=== PATIENT | female | born 1945 | race Caucasian/White ===

== ENCOUNTER → 2023-11-01 13:11 | Outpatient (CLI) | payer MEDICARE, SELFPAY ==
--- NOTE | ~2023-11-01 | XR_ITS ---
EXAM: XR foot LT min 3V DATE: 11/01/2023 13:31 HISTORY: left foot pain . COMPARISON: None available. FINDINGS: Decreased mineralization. No fracture or dislocation. Loss of the longitudinal arch. No ly tic or blastic lesion. Joint spaces are maintained. No erosion or periosteal change. Soft tissues wit hin normal limits. IMPRESSION: Osteopenia. Pes planus. Otherwise normal left foot radiograph findings. Reviewed, dictated and finalized at location K. SCRIBING OPERATOR HEAD IMPRESSION: Osteopenia. Pes planus. Otherwise normal left foot radiograph findi ngs.
== END ==
DX: M21.42 Flat foot [pes planus] (acquired), left foot (principal); M85.88 Other specified disorders of bone density and structure, other site
CPT/HCPCS: 73630

== ENCOUNTER 2024-09-29 18:57 | Emergency (ER) | payer MEDICARE, SELFPAY ==
[2024-09-29] VITALS (8 sets, daily range): BP systolic 150–173; BP diastolic 59–83; PULSE 75–98; RESP 13–22; TEMP 36.9; O2SAT 96–100
--- NOTE | ~2024-09-29 | CT_ITS ---
EXAMINATION: CT abdomen pelvis w con DATE: 09/30/2024 00:56 INDICATION: Abdominal pain, nausea, vomiting and diarrhea. TECHNIQUE: Computed tomography (CT) of the abdomen and pelvis was performed with 100 mL Omnipaque-350 intravenous contrast. Automated exposure control and iterative reconstruction technique were employe d. The dose-length product was 296.08 mGy-cm. COMPARISON: 05/01/2019 FINDINGS: Mild smooth septal line thickening at the bilateral lung bases consistent with mild pulmonary edema. Heart size is normal. No pericardial or pleural effusion. 1.3 cm likely enhancing nodule with lobular margins along the nondependent gallbladder wall which could represent either a large polyp or gallbl adder cancer. Liver, spleen, pancreas, bilateral adrenal glands and kidneys are normal. Bladder is no rmal. The uterus is not identified and has likely been surgically resected. Bowels including the appe ndix are normal. No free intraperitoneal gas or fluid. No pathologically enlarged abdominal or pelvic lymphadenopathy. Mild lumbar levocurvature with mild to moderate lumbar and lower thoracic spondylos is. Right supra-acetabular bone island. IMPRESSION: 1. No acute intra-abdominal/pelvic process. 2. 1.3 cm nodule along the nondependent gallbladder wall which could represent a large polyp of with increasing size there is a progressively increasing risk of gallbladder carcinoma and would recommend surgical consultation and/or 6 month ultrasound follow-up. Reviewed, dictated and finalized at location A. S OFFICER IMPRESSION: 1. No acute intra-abdominal/pelvic process. 2. 1.3 cm nodule along the nondependent gallbladder wall which could represent a large polyp of with increasing size there is a progressively increasing risk of gallbladder carcinoma and would recommend surgical consultation and/or 6 mon th ultrasound follow-up.
[2024-09-29 22:21] LABS: Basophils Percent Auto 0.4 % (0.2-1.2); Eosinophils Percent Auto 0.2 % (0-4.4); Hematocrit 39.6 % (37.0-47.0); Hemoglobin 12.8 g/dL (12.0-15.0); Immature Granulocyte Absolute 0.01 K/mm3 (0.00-0.031); Immature Granulocyte Percent A 0.2 % (0-0.5); Lymphocytes Percent Auto 4.1 % (18.3-44.2); Mean Corpuscular HGB Conc 32.3 g/dl (32-36); Mean Corpuscular Hemoglobin 28.9 pg (26-34); Mean Corpuscular Volume 89.4 fl (80-100); Mean Platelet Volume 10.4 fl (7.4-10.4); Monocytes Absolute Auto 0.3 K/mm3 (0.1-0.6); Monocytes Percent Auto 5.4 % (2.6-8.5); Neutrophils Absolute Auto 4.3 K/mm3 (1.3-6.7); Neutrophils Percent Auto 89.7 % (45.5-73.1); Platelet Count Result 209 k/mm3 (150-375); Red Blood Count 4.43 M/mm3 (4.2-5.4); Red Cell Distribution Width 13.1 % (11.5-14.5); White Blood Count 4.8 K/mm3 (4.5-10.0)
[2024-09-29 22:35] LABS: Alanine Aminotransferase 22 U/L (6-35); Albumin Level 4.3 g/dL (3.5-5.1); Alkaline Phosphatase 67 U/L (38-126); Anion Gap 12 mmol/L (4-12); Aspartate Amino Transferase 35 U/L (14-36); Bilirubin,Total 0.6 mg/dL (0.2-1.3); Blood Urea Nitrogen 27 mg/dL (7-17); Calcium 10.1 mg/dL (8.4-10.2); Carbon Dioxide 21 mmol/L (22-30); Chloride 107 mmol/L (98-107); Estimated CRCL calculation 42 ml/min; Estimated Glomerular Filt Rate > 60; Glucose 109 mg/dL (65-110); Lipase 88 U/L (23-300); Potassium 4.1 mmol/L (3.4-5.0); Sodium 140 mmol/L (137-145)
--- OUTSIDE RECORDS SUMMARY | 2024-09-29 23:33 | XMS_ITS | Encounter Summary ---
Author Organization [facility] Healthcare Address [address] [place] [address] Care Team Providers Care Philosophy Specialist Name Role Phone Sarai Magaña MD Unavailable [phone] Panfilo Kerns MD Primary Care Provider [phone] Reason for Visit * Reason Onset Date Comments Diarrhea 09/29/2024 Nausea And Vomitting 09/29/2024 Encounter Details Date Type Department Care Team (Late st Contact Info) Description 09/29/2024 Nurse Triage [facility] [address] [phone] Panfilo Kerns MD [address] [facility] [address], [place] [address] Social History Tobacco Use Types Packs/Day Years Used Date Smoking Tobacco: Never Smokeless Tobacco: Never Comments:Does not drink alco hol Alcohol Use Standard Drinks/Week Comments No 0 (1 standard drink = 0.6 oz pur e alcohol) AUDIT-C Answer Date Recorded Q1: How often do you have a drink containing alc ohol? Never 06/02/2021 Average Number of Drinks Not on file 021 Frequency of Binge Drinking Not on file 05/08 PHQ-2 Answer Date Recorded PHQ-2 Total Score (If total score is 3 or more points, staff should administer the PHQ-9) 0 10/20/2023 Comments No Sex and Gender Information Value Date Recorded Sex Assigned at Not on file Legal Sex Female 2:17 AM FAN MAIL CLERK Gender Identity Not on file Sexual Orientation Not on file Occupation Industry Job Start Date Job End Date Worked in [employer], retired Not on file Not on file Not on file documented as of this encounter Miscellaneous Notes * Telephone Encounter - Lynda Heart RN - 09/29/2024 2:45 PM FAN MAIL CLERK Paradise [employer]keon's Cirilo (HIPAA) who is with the patient, reports patient's had NVD since 0300 today. CC: watery diarrhea. Estimates ~ 6+ episodes of diarrhea and 3-4 episodes of vomiting.Took Imodium this AM & vomited it up. Just drank some water a few minutes ago, 2 swallows. Has voided in last 12 hours. Patient eating/drinking normally yesterday. No recent travel, known exposures, antibiotics or spoiled food. Temp now (oral) 96.5 F Denies rectal bleeding/hematemesis/fever/dizziness/abdominal pain. Care advice and emotional support given. Patient instructed to call back if symptoms worsen or withany questions and verbalized understanding. Provider Dano Cook NP contacted via secure chat for ED disposition consult. Recommendation from provider:Send to [facility]. Advised for patient to go to a local [facility] (not a [facility]) and they do not have internet at home. Gave them names and adress of 3 different UCC's in their area. Then this RN was informed that patient took a medication for constipation yesterday. Advised them to still proceed to a local [facility]. [facility], [facility], [place] Informed Cirilo that this RN nor [facility] recommends one UCC over another, but this RN just trying to help provide them some options. verbalized understanding. Reason for Disposition SEVERE diarrhea (e.g., 7 or more times / day more than normal) and age > 60 years Protocols used: [id number] MAIL CLERK * Telephone Encounter - Lynda Heart RN - 09/29/2024 2:41 PM FAN MAIL CLERK Regarding: Diarrhea, vomiting, nausea ----- Message from Sanchez Campa sent at 09/29/2024 2:37 PM FAN MAIL CLERK ----- Symptom Based Call Chief Complaint(s): Diarrhea, vomiting, nausea Duration: 09/29/24 What type of symptom(s) is the patient experiencing? Non-Emergent. Is this a new or reoccurring symptom(s)? New What have you tried to help your symptom(s)? She tried imodium this morning, but vomited the medication back up Why was appointment not scheduled? Requesting advice from clinical environmental field team member. Additional Comments: spouse Cirilo called to report patient is has diarrhea, vomiting, and nausea since 3:00 AM this morning. Patient denied bloody, black, and tarry bowel movements and denied blood,black, or coffee vomiting. Patient seeking guidance on next steps. Does message need to be routed? Yes-Action Needed MAIL CLERK documented in this encounter Plan of Treatment Upcoming Encounters Date Type Department Care Team (Late st Contact Info) Description 10/24/2024 8:30 AM FAN MAIL CLERK Hospital Encounter [facility] [address] [place] [phone] Don Maciel MD [address] [facility] [address], [place] [id number] 10/24/2024 8:30 AM FAN MAIL CLERK - 10/24/2024 9:00 AM FAN MAIL CLERK Surgery [facility] [address] [place] [phone] Don Maciel MD [address] [facility] [address], [place] [id number] COLONOSCOPY Scheduled Procedures Name Priority Associated Diagnoses Date/Ti me COLONOSCOPY Personal history of colonic polyps 10/24/2024 8:30 AM FAN MAIL CLERK documented as of this encounter Visit Diagnoses Not on filedocumented in this encounter Care Teams Philosophy Specialist Relationship Specialty Start Date End Date Panfilo Kerns MD [address] [facility] [address], [place] [id number] PCP - General Family Medicine 06/20/20 Sarai Magaña MD [address] [place] [id number] [place] [address] Consulting Physician Obstetrics and Gynecology 01/25/20 documented as of this encounter
--- OUTSIDE RECORDS SUMMARY | 2024-09-29 23:33 | XMS_ITS | Clinical Summary ---
Author Organization [facility] Address [address] [place] [address] Care Team Providers Care Paleontological Helper Name Role Phone Sarai Magaña MD Unavailable [phone] Panfilo Kerns MD Primary Care Provider [phone] Allergies Active Allergy Reactions Criticality Noted Date Comments Codeine Nausea & Vomiting Medium Erythromycin Other (See comments) Low Severe stomach cramps Fentanyl Shortness of breath High 02/23/2020 Penicillins Hives,Anxiety Medium Occurred with second dose ( 1 week after initial dose) No other related antibiotics Prochlorperazine Swollen tongue High Sulfa (Sulfonamide Antibiotics) Rash Medium 07/12/2019 Medications cholecalciferol (VITAMIN D-3) 2,000 unit tablet Take 1 tablet (2,000 Units total) by mouth daily 30 tablet 3 9 Active Additional Information Patient taking differently:2,000 Units oralDaily after lunch, Indications: Vitamin D Deficiency, Reported on 10/20/2023 cetirizine (ZyrTEC) 10 mg tablet Take 1 tablet (10 mg total) by mouth as needed for allergies Active naproxen (ALEVE) 220 mg tablet Take 1 tablet (220 mg total) by mouth every 12 (twelve) hours as needed for pain Pt taking prn Active docusate sodium (COLACE) 100 mg capsuleIndicati ons:constipatio n Take 1 capsule (100 mg total) by mouth 2 (two) times a day as needed for constipation Active triamcinolone (KENALOG) 0.1 % cream Apply topically 2 (two) times a day for 14 days 30 g 4 Active simvastatin (ZOCOR) 10 mg tablet TAKE 1 TABLET BY MOUTH EVERY DAY AFTER DINNER 90 tablet 1 4 Active Active Problems Problem Noted Date Diagnosed Date Personal history of colonic polyps 05/12/2024 Capsulitis of foot, left 11/09/2023 Fat pad atrophy of foot 11/09/2023 Advanced care planning/counseling discussion Assessment & Plan (10/20/2023 3:24 PM COSTUME DRAPER): Advance Care Planning Advance Care Planning Conversation Pertinent diagnoses: Hypercholesterolemia, atrial bowel syndrome, allergies, tubular adenoma The patient and/or family consented to a voluntary Advance Care Planning conversation. Individuals present for the conversation: patient Summary of the conversation: Patient does not have advanced care planning documents. She reports that she was adopted and does not have any siblings. She also does not have any children. She got in 1968 and would like her Cirilo Mckeon to be her healthcare power of defense attorney. She states that she would want CPR/Intubation if there is good chance of recovery otherwise she does not want it. She also reports that even if she is on a ventilator, she does not want to prolong life if there is no hope. I printed [place], living [place], power of defense attorney for healthcare and POLST form and given to patient. Advised to get it motorized and send us a copy. Outcome of the conversation and documents completed (select all that apply): CHANGE code status to FULL CODE I spent 20 minutes providing separately identifiable ACP services with the patient and/or surrogate decision maker in a voluntary, in-person conversation discussing the patient's wishes and goals as detailed in the above note. Panfilo Kerns MD Hypercalcemia 10/19/2022 Assessment & Plan (10/20/2023 3:19 PM COSTUME DRAPER): Previously on vitamin-D and calcium, she has no longer taking both the medication due to hypercalcemia. Repeat calcium performed on 02/2023 was normal. Will recheck labs. Assessment & Plan (10/19/2022 2:54 PM COSTUME DRAPER): Currently on vitamin-D 3 2000 units daily. She does not take calcium supplement. Recheck vitamin-D and PTH Left foot pain 10/16/2021 Assessment & Plan (10/20/2023 3:21 PM COSTUME DRAPER): Since she feels that the soreness is getting worse, will refer her to community representative Assessment & Plan (10/16/2021 3:13 PM COSTUME DRAPER): Likely due to mild arthritis. Recommend that she take Tylenol and monitor History of postmenopausal bleeding 06/23/2019 Assessment & Plan (10/19/2022 2:53 PM COSTUME DRAPER): History of hysterectomy and oophorectomy. Continue follow-up with the travertine installer Assessment & Plan (10/15/2020 10:03 PM COSTUME DRAPER): Status post hysterectomy and oophorectomy. Urinary frequency 01/02/2019 Assessment & Plan (01/02/2019 2:30 PM CDT): Keep equal exercises, see Dr. Lew if this is not help Medicare annual wellness visit, subsequent 12/01 Overview (10/19/2022): 12/2017: DEXA scan showed bone mineral density lower limit of normal 12/2015. Last colonoscopy with Dr Maciel was on 12/2015 that showed fragments of tubular adenoma, recall in 5 yrs. 05/2021: Colonoscopy: fragments of tubular adenoma, recall 3 yr(Dr Maciel). 02/2020: Persistent PMB/uterine mass s/p laparoscopic abdominal hysterectomy with bilateral salpingo-oophorectomy and path report was benign 02/2021: L1-L4 -1.3. left femoral neck-1.0. total left hip -0.7.?? She is adopted and does not know her siblings. She does not have children and states her is HPOA. Assessment & Plan (10/20/2023 3:20 PM COSTUME DRAPER): Mammogram on 06/17/2023 was negative: Recommend annual mammogram. DEXA scan on 02/2021 shows osteopenia, recheck in 2025. Colon cancer screening: Up-to-date, repeat colonoscopy later this year. Referred to GI Advance Care Planning: Discussed with patient, see below Continue regular dental and eye exam She walks 3 times daily, recommend at least 30 minutes of daily exercise Assessment & Plan (10/19/2022 2:53 PM COSTUME DRAPER): Counseling and Referral of Preventative Services: Patient here for annual Medicare wellness visit and for review of complete medical problem list. All the elements of the plan were completed as outlined by CMS. A copy of the prevention plan was given to the patient. I reviewed Medicare Wellness Questionnaire (other physicians involved in care, depression screen, advanced directives), cognitive/memory, and functional assessment. Forms scanned in progress notes. I reviewed and updated the complete problem list, medication list, family history, and immunization records with the patient. I provided preventive counseling and early detection interventions to the patient through health maintenance update and summary of today's office visit. Recommend Tdap every 10 yrs, annual flu vaccine, shingles vaccine x 2, and COVID 19 booster vaccination. Mammogram: Recommend annual mammogram. DEXA scan: Recommend DEXA scan every 2-5 yrs. Colon cancer screening: Up-to-date, repeat colonoscopy in 2023. Advance Care Planning: Discussed with patient Recommend regular dental visit 1-2 times a year. Continue annual eye exam Assessment & Plan (10/16/2021 3:11 PM COSTUME DRAPER): Counseling and Referral of Preventative Services: Patient here for annual Medicare wellness visit and for review of complete medical problem list. All the elements of the plan were completed as outlined by CMS. A copy of the prevention plan was given to the patient. I reviewed Medicare Wellness Questionnaire (other physicians involved in care, depression screen, advanced directives), cognitive/memory, and functional assessment. Forms scanned in progress notes. I reviewed and updated the complete problem list, medication list, family history, and immunization records with the patient. I provided preventive counseling and early detection interventions to the patient through health maintenance update and summary of today's office visit. Mammogram: Continue annual mammogram Dexa scan: Osteopenia, continue Vitamin D supplement. Recheck in 3-4 yrs. Recommend Tdap every 10 yrs, annual flu vaccine and shingles vaccine after you turn 50. We recommend pneumococcal vaccination for all adults 19 to 64 years who have a condition that increases the risk of pneumococcal disease. It is also recommended for all adults >=65 years. Also recommend COVID 19 vaccination, if you have not been vaccinated. Colon cancer screening: uptodate, repeat in 3-5 yrs Recommend regular dental visit 1-2 times a year. Also recommend eye exam if vision is poor. Nutrition: Recommend eating a balanced diet, including fruits and vegetables daily and regular servings of fish. We recommend you do not drink alcohol, if you must drink, we recommend you limit alcohol to one drink per day for female and no more than 2 drink a day for males, where a drink is defined as 12 oz of beer, 5 oz of wine, or 1.5 oz of spirits. Activity: Normal BMI is >=18.5 to 24.9 kg/m2. .Try to keep BMI at the recommended limit. Recommend regular exercise, 30 minutes daily for at least 5 days a week or 150 minutes of weekly exercise. Advised to do things that stimulate your mind, such as puzzles, books, working on hobbies, visiting with friends and relatives or engaging in other social and community activities. Sleep: Sleep can have a big effect on your memory and thinking. Please make sure you get a good night's sleep every night. If you have trouble sleeping, make sure you follow these rules for basic sleep hygiene: -Get up at the same time every morning, regardless of how little or how poorly you sleep. -No napping during the day time. If naps are really necessary, nap for less than an hour and avoid napping late in the evening. -Have a regular calm down time before going to bed. Do not work right up until bedtime. -Have a regular exercise schedule, as exercise helps consolidate sleep. -No caffeine for 6 hours before bedtime. -No watching T.V. or using the computer in your bedroom or at bedtime. -If you are not able to fall asleep after 20 minutes, get out of bed and do a relaxing activity for a few minutes. -Avoid taking medications like Tylenol PM, or Advil PM, these drugs can make memory and thinking worse. Assessment & Plan (10/15/2020 10:00 PM COSTUME DRAPER): Counseling and Referral of Preventative Services: Lifestyle Recommendations Increase Physical Activity, Stop Using Tobacco, Reduce Weight and Improve DietYour Body mass index is 23.65 kg/m??. A healthy BMI is less than 25. Patient here for annual Medicare wellness visit and for review of complete medical problem list. All the elements of the plan were completed as outlined by CMS. A copy of the prevention plan was given to the patient. I reviewed Medicare Wellness Questionnaire (other physicians involved in care, depression screen, advanced directives), cognitive/memory, and functional assessment. Forms scanned in progress notes. I reviewed and updated the complete problem list, medication list, family history, and immunization records with the patient. I provided preventive counseling and early detection interventions to the patient through health maintenance update and summary of today's office visit. Due for colonoscopy in 12/2020. Recommend DEXA scan in 3-5 years Recommend annual mammogram Assessment & Plan (01/02/2019 2:29 PM CDT): Life style, exerise and diet were reviewed with the patient, along with ideal body weight. Use of caffeine and alcohol were discussed. Medications, compliance and pertinent adverse drug effects were reviewed. Health maintenance matters were discussed and are now up to date. Assessment & Plan (12/01/2017 1:32 PM CDT): Life style, exerise and diet were reviewed with the patient, along with ideal body weight. Use of caffeine and alcohol were discussed. Medications, compliance and pertinent adverse drug effects were reviewed. Health maintenance matters were discussed and are now up to date. Osteopenia of multiple sites 12/01/2017 Assessment & Plan (01/02/2019 2:29 PM CDT): Continue vitamin-D Assessment & Plan (12/01/2017 1:51 PM CDT): Will set up bone density last done 3 half years ago. Check vitamin-D level Seasonal allergic rhinitis due to pollen 018 Overview (10/15/2020): She reports being on allergy injection when she was a teenager. Assessment & Plan (10/15/2020 10:04 PM COSTUME DRAPER): Continue cetirizine as needed.She reports being on allergy injection when she was a teenager. Assessment & Plan (01/02/2019 2:29 PM CDT): No change in p.r.n. Management Assessment & Plan (12/01/2017 1:54 PM CDT): P.r.n. Lyndsay working well Cholelithiasis 07/12/2012 Overview (12/11/2016): Asymptomatic gallstones Assessment & Plan (01/02/2019 2:28 PM CDT): Observe only, asymptomatic for many years Hypercholesterolemia 07/12/2012 Overview (12/11/2016): Hypercholesterolemia Assessment & Plan (10/20/2023 3:17 PM COSTUME DRAPER): Currently on simvastatin 10 mg daily. She has not on any side effect. Continue current treatment. Monitor lipid Assessment & Plan (10/19/2022 2:53 PM COSTUME DRAPER): Continue statin. Check lipid Assessment & Plan (10/16/2021 3:13 PM COSTUME DRAPER): Check labs, continue Zocor Assessment & Plan (10/15/2020 10:03 PM COSTUME DRAPER): Continue Lipitor, check lipid Assessment & Plan (01/02/2019 2:29 PM CDT): Fast lipid profile today Assessment & Plan (12/01/2017 1:51 PM CDT): Checking lipid profile and re-evaluating medication Irritable bowel syndrome 07/12/2012 Overview (12/11/2016): Irritable bowel syndrome Assessment & Plan (10/20/2023 3:17 PM COSTUME DRAPER): Currently stable. Takes Tigan p.r.n. Assessment & Plan (10/16/2021 3:12 PM COSTUME DRAPER): Stable, she takes Tigan occasionally. Reports that after penitentiary it significantly improved and she took it 2 times last year and is needing a refill. Assessment & Plan (10/15/2020 10:03 PM COSTUME DRAPER): Constipation predominant. Currently stable. Assessment & Plan (01/02/2019 2:29 PM CDT): Constipation variety easily controlled Assessment & Plan (12/01/2017 1:50 PM CDT): Currently minimal symptoms with current regimen Eczema 07/12/2012 Overview (12/11/2016): Eczema Assessment & Plan (01/02/2019 2:29 PM CDT): Continue topical product Assessment & Plan (12/01/2017 1:52 PM CDT): Relatively inactive, use of emollients only Tubular adenoma 07/12/2012 Overview (10/19/2022): Impression: - One 5 mm polyp in the sigmoid colon, removed with a cold snare. Resected and retrieved. - One 4 mm polyp in the sigmoid colon, removed with a hot biopsy forceps. Resected and retrieved. - One 10 mm polyp in the transverse colon, removed with a hot snare. Resected and retrieved. - The examination was otherwise normal on direct and retroflexion views. Recommendation: - Await pathology results. - Repeat colonoscopy in 3 years for surveillance. ?? Electronically signed by Don Maciel MD Don Maciel M.D. 06/02/2021 11:27:38 AM Fragments of tubular adenoma Assessment & Plan (10/20/2023 3:17 PM COSTUME DRAPER): She is up-to-date on colonoscopy but will be due later this year. Referral given to patient Assessment & Plan (10/19/2022 2:53 PM COSTUME DRAPER): Follow-up with Dr. Finnegan next year Assessment & Plan (01/02/2019 2:28 PM CDT): Reviewed results, Assessment & Plan (12/01/2017 1:51 PM CDT): Colonoscopy up-to-date Resolved Problems Problem Noted Date Diagnosed Date Resolved Date Personal history of colonic polyps 03/12/2021 10/20/2023 Overview (03/12/2021): Added automatically from request for surgery [id number] Post-menopausal bleeding 01/31/202005/2021 Overview (01/31/2020): Added automatically from request for surgery [id number] Uterine mass 01/31/2020 10/20/2023 Overview (01/31/2020): Added automatically from request for surgery [id number] Uterine leiomyoma 06/23/2019 10/20/2023 Encounter for hepatitis C sc reening test for low risk patient 12/01/2017 06/23/2019 Assessment & Plan (12/01/2017 1:51 PM CDT): Screening per guidelines Polyp, sigmoid colon 024 Encounters Date Type Department Care Team Description 09/29/2024 Nurse Triage [place] [id number] [facility] [address] [place] [phone] Panfilo Kerns MD 07/03/2024 1:23 PM CDT - 07/03/2024 11:59 PM CDT Hospital Encounter [facility] [address] [facility] [address] [place] [phone] Screening mammogram, encounter for Discharge Disposition: Discharge to home or self care from Last 3 Months Immunizations Name Administration Dates Next Due Influenza, Quad, Adjuvantate d, Intramuscular 07/21/2022 Influenza, Quadrivalent, Hig h Dose, Preservative Free, Intrr 05/21/2023,06/05/2021,07/15/2020 Influenza, Split 07/11/2013,07/12/2012 Influenza, Trivalent, IM (MDV) 07/23/2014 Influenza, Unspecified 05/07/2023,2021,06/13/2021,06/06(Deferred: Patient Refused),06/06/2017(Deferred: Patient Refused) 1001 Menus SARS-CoV-2 Monovalent Vaccination (12+ Yrs) PURPLE 01/21/2022,06/27/2021,11/18/2020,10/28 Pneumococcal Conjugate PCV 13 11/06/2015 Pneumococcal Polysaccharide PPV23 07/12/2012 Tdap 10/15/2023 Surgical History Surgery Date Site/Laterality Comments TONSILLECTOMY 09/06/1951 - 09[birth year]05/1952 Tonsillectomy ENDOMETRIAL BIOPSY 07/07/2019 - 08/05/2019 HYSTERECTOMY W/ BILATERAL SALPINGOOPHORECTOMY 02/09/2020 Bilateral COLONOSCOPY Medical History Medical History Date Comments PMB (postmenopausal bleeding) 06/23/2019 Uterine leiomyoma 06/23/2019 Eczema 07/12/2012 Eczema Seasonal allergic rhinitis due to pollen 12/02/19 18 Irritable bowel syndrome 07/12/2012 Irritab le bowel syndrome High cholesterol Colon polyp Social History Tobacco Use Types Packs/Day Years [...] on file Legal Sex Female 2:17 AM COSTUME DRAPER Gender Identity Not on file Sexual Orientation Not on file Occupation Industry Job Start Date Job End Date Worked in [employer], retired Not on file Not on file Not on file Obstetrics History Para Term AB IAB SAB Ectopic Multiple Livin g Live Births 0 0 0 0 0 0 0 0 0 0 0 Last Filed Vital Signs Vital Sign Reading Time Taken Comments Blood Pressure 136/72 11/09/2023 1:14 PM COSTUME DRAPER Pulse 77 11/09/2023 1:14 PM COSTUME DRAPER Temperature 36.3 ??C (97.4 ??F) 06/02/2021 10:52 AM C DT Respiratory Rate 16 10/20/2023 1:13 PM COSTUME DRAPER Oxygen Saturation 99% 11/09/2023 1:14 PM COSTUME DRAPER Inhaled Oxygen Concentration - - Weight 58.1 kg (128 lb) 11/09/2023 1:14 PM COSTUME DRAPER Height 162.6 cm (5' 4 ) 11/09/2023 1:14 PM COSTUME DRAPER Body Mass Index 21.97 11/09/2023 1:14 PM COSTUME DRAPER Plan of Treatment Upcoming Encounters Date Type Department Care Team (Late st Contact Info) Description 10/24/2024 8:30 AM COSTUME DRAPER Hospital Encounter [facility] [address] [place] [phone] Don Maciel MD [address] [phone] 10/24/2024 8:30 AM COSTUME DRAPER - 10/24/2024 9:00 AM COSTUME DRAPER Surgery [address] [phone] Don Maciel MD [address] [phone] COLONOSCOPY Scheduled Procedures Name Priority Associated Diagnoses Date/Ti me COLONOSCOPY Personal history of colonic polyps 10/24/2024 8:30 AM COSTUME DRAPER Health Maintenance Due Date Last Done Comments Hepatitis B Screening 1963 Zoster Vaccine (1 of 2) 1996 Osteoporosis Screening-Bone Density Scan 02/13/2023 02/13/2021, 12/14/2017, 07/31/2014 Covid-19 Vaccine (2023- 5 season) 2024 07/06/2023, 10/30/2022, 01/21/2022, Additional history exists Influenza Vaccine (#1) 2024 , 05/07/2023, 07/22/2022, Additional history exists Depression Screening 10/20/2024 10/20/2023, 10/19/2022, 10/16/2021, Additional history exists Fall Risk Assessment 10/20/2024 10/20/2023, 10/19/2022, 10/16/2021, Additional history exists Well Visit 65+ 10/20/2024 10/20/2023, 10/07, 10/16/2021, Additional history exists DTaP/Tdap/Td Vaccine (2 - Td or Tdap) 10/15/2033 10/15/2023 Pneumococcal vaccine 65+ Completed 11/06/2015, 1102/2012 Hepatitis C Screening Completed 12/01/2017 Colon Cancer Screening-CT Colonography Discontinued 06/02/2021, 12/25/2015 Colon Cancer Screening-Colonoscopy Discontinued 06/02/2021, 12/25/2015 Colon Cancer Screening-DNA Stool Discontinued 06/02/20 21, 12/25/2015 Colon Cancer Screening-FIT Discontinued 06/02/2021, Colon Cancer Screening-FOBT Discontinued 06/02/2021, 0 12/25/2015 Colon Cancer Screening-Sigmoidoscopy Discontinued 06/02/2021, 12/25/2015 Colorectal Cancer Screening Discontinued Breast Cancer Screening-Mammogram Discontinued 07/03/2024, 06/17/2023, 05/22/2022, Additional history exists Procedures Procedure Name Priority Date/Time Associated Diagnosis Comments SCREENING MAMMOGRAM BILATERAL W WOLFGANG Schedule Routine, Read Routine (OP Routine) 07/03/2024 1:41 PM CDT Screening mammogram, encounter for COLONOSCOPY 06/02/2021 10:46 AM CDT DEXA AXIAL SKELETON BONE DENSITY 1 OR MORE SITES Schedule Routine, Read Routine (OP Routine) 02/13/2021 2:11 PM CDT Other specified disorders of bone density and structure, unspecified site HEPATITIS C ANTIBODY Routine 12/01/2017 2:00 PM CDT Encounter for hepatitis C screening test for low risk patient from Last 3 Months or Most Recently Relevant to Health Maintenance Results * Screening Mammogram Bilateral W Wolfgang (07/03/2024 1:41 PM CDT) Anatomical Region Laterality Modality Breast Bilateral Mammography Narrative 07/04/2024 7:13 AM CDT Examination: Screening Mammogram Bilateral W Wolfgang: 07/03/24 Clinical: Screening mammogram, encounter for. Prior Study Comparisons: Comparison was made to the prior available relevant studies at the time of interpretation. Findings: Screening Mammogram Bilateral W Wolfgang Bilateral No significant masses, malignant type calcifications, skin thickening, nipple retraction, or significant lymphadenopathy is noted in either breast. Computer Aided Detection was utilized for the interpretation of this study. There are scattered areas of fibroglandular density. The patient will be notified of results by letter. Impression: BI-RADS?? ATLAS category (overall): 2 - Benign ?? There is no mammographic evidence of malignancy. Routine Screening Mammogram in 1 Yr is recommended for bilateral Overall Assessment: 2 - Benign us Self Screening Mammogram IMG MAMMO PROCEDURES Fi nal Result * COLONOSCOPY (06/02/2021 10:46 AM CDT) Anatomical Region Laterality Modality Other Narrative Procedure Note Don Maciel MD - 06/02/2021 10:46 AM CDT ENDOSCOPY LAB Patient Name: Cole Mckeon Procedure Date: 06/02/2021 10:46 AM Admit Type: Outpatient Room: [facility] 1 Date of : 1945 Instrument Name: [id number] Gender: Female Note Status: Finalized Procedure: Colonoscopy Indications: High risk colon cancer surveillance: Personalhistory of colonic polyps, Last colonoscopy: December 2015 Providers: Don Maciel M.D. Referring MD: Panfilo Kerns M.D. Medicines: Propofol per Anesthesia Complications: No immediate complications. Estimated Blood Loss: Estimated blood loss: none. Procedure: Pre-Anesthesia Assessment: - The risks and benefits of the procedure and the sedation options and risks were discussed with the patient. All questions were answered and informed consent was obtained. The benefits, risks and alternatives of theprocedure and sedation were discussed and informed consentwas obtained. All questions were answered. Please referto the signed informed consent document in the medical record. The scope was passed under direct vision.The Colonoscope was introduced through the anus and advanced to the the cecum, identified byappendiceal orifice and ileocecal valve. The colonoscopy was performed without difficulty. The patient tolerated the procedure well. The quality of the bowel preparation was good. The quality of the bowel preparation was evaluated using the BBPS (BostonBowel Preparation Scale) with scores of: Right Colon = 3 (entire mucosa seen well with no residual staining, small fragments of stool or opaque liquid),Transverse Colon = 3 (entire mucosa seen well with no residual staining, small fragments of stool or opaqueliquid) and Left Colon = 3 (entire mucosa seen well with no residual staining, small fragments of stool oropaque liquid). The total BBPS score equals 9. The qualityof the bowel preparation was excellent. The bowel preparation used was polyethylene glycol (PEG) via split dose instruction. Findings: A 5 mm polyp was found in the sigmoid colon. The polyp was sessile.The polyp was removed with a cold snare. Resection and retrieval were complete. A 4 mm polyp was found in the sigmoid colon. The polyp was sessile.The polyp was removed with a hot biopsy forceps. Resection and retrieval were complete. A 10 mm polyp was found in the transverse colon. The polyp wassessile. The polyp was removed with a hot snare. Resection and retrieval were complete. The exam was otherwise without abnormality on direct and retroflexion views. Impression: - One 5 mm polyp in the sigmoid colon, removed witha cold snare. Resected and retrieved. - One 4 mm polyp in the sigmoid colon, removed witha hot biopsy forceps. Resected and retrieved. - One 10 mm polyp in the transverse colon, removed with a hot snare. Resected and retrieved. - The examination was otherwise normal on directand retroflexion views. Recommendation: - Await pathology results. - Repeat colonoscopy in 3 years for surveillance. Electronically signed by Don Maciel MD Don Maciel M.D. 06/02/2021 11:27:38 AM This document was signed electronically. Number of Addenda: 0 Note Initiated On: 06/02/2021 10:46 AM Scope In: Scope Out: us Don Maciel MD ENDOSCOPY PROCEDURES Final Result * Dexa Axial Skeleton Bone Density 1 or 2 Site (02/13/2021 2:11 PM CDT) Anatomical Region Laterality Modality Body N/A Digital Radiogra phy 02/13/2021 2:17 PM CDT Impressions 02/13/2021 2:17 PM CDT Low bone mass (osteopenia) which depending on the clinical circumstances may result in a moderate increased risk of fragility fracture. If followup is to be done, for technical reasons, it should be performed on this same machine. Electronically signed by: Best Parra M.D. Narrative 02/13/2021 2:17 PM CDT EXAM: ??Bone mineral density examination HISTORY: ??Postmenopausal. DXA BMD was done at [facility] on a HoloCollections Discovery CI. Precision testing at this site has resulted in a least significant change of: Lumbar spine 0.031 g/sq cm Total Hip 0.026 g/sq cm Femoral neck 0.040 g/sq cm BMD L1-L4 is 0.908 g/sq cm corresponding to a T score of -1.3. BMD left femoral neck is 0.737 g/sq cm corresponding to a T score of -1.0. BMD total left hip is 0.858 g/sq cm corresponding to a T score of -0.7. The 10-year fracture risk for major osteoporotic fracture: 9.3% The 10-year fracture risk for hip fracture: 1.4% COMPARISON: ??When comparison is made with the most recent bone densitometry, there has been statistically significant interval decrease in total bone mineral density of the lumbar spine and no significant interval change in total bone mineral density of the left hip. Procedure Note Best Parra MD - 02/13/2021 EXAM: Bone mineral density examination HISTORY: Postmenopausal. DXA BMD was done at [facility] on a Holo[employer] Discovery CI. Precision testing at this site has resulted in a least significant change of: Lumbar spine 0.031 g/sq cm Total Hip 0.026 g/sq cm Femoral neck 0.040 g/sq cm BMD L1-L4 is 0.908 g/sq cm corresponding to a T score of -1.3. BMD left femoral neck is 0.737 g/sq cm corresponding to a T score of -1.0. BMD total left hip is 0.858 g/sq cm corresponding to a T score of -0.7. The 10-year fracture risk for major osteoporotic fracture: 9.3% The 10-year fracture risk for hip fracture: 1.4% COMPARISON: When comparison is made with the most recent bone densitometry, there has been statistically significant interval decrease in total bone mineral density of the lumbar spine and no significant interval change in total bone mineral density of the left hip. IMPRESSION: Low bone mass (osteopenia) which depending on the clinical circumstances may result in a moderate increased risk of fragility fracture. If followup is to be done, for technical reasons, it should be performed on this same machine. Electronically signed by: Best Parra M.D. us Sarai Magaña MD IMG DXA PROCEDURES Final Re sult * Hepatitis C antibody (12/01/2017 2:00 PM CDT) Hep C Ab Non-Reactiv e Non-Reactiv e [facility]3] Blood specimen (specimen) 12/01/2017 2:00 PM CDT 12/01/2017 6:44 PM CDT Narrative [facility]3] - 12/01/2017 8:01 PM CDT us Daniel Espinoza MD LAB MICROBIOLOGY - GENER AL ORDERABLES Final Result [facility]3] [address] Department of Laboratories [place], [place] [id number] from Last 3 Months or Most Recently Relevant to Health Maintenance Insurance [facility] [employer] [place] MEDICARE SOLUTIONS MEDICARE SOLUTIONS Advance Directives For more information, please contact: [phone] * Full Code (Latest Code Status on File) Date Activated Date Inactivated Comments 06/02/2021 10:28 AM 06/02/2021 4:37 PM * Full Code Date Activated Date Inactivated Comments 07/12/2019 1:30 PM 07/12/2019 7:01 PM Care Teams Paleontological Helper Relationship Specialty Start Date End Date Panfilo Kerns MD [address] [facility] [address] [place] [address] PCP - General Family Medicine 06/20/20 Sarai Magaña MD [address] [place] [address] Consulting Physician Obstetrics and Gynecology 01/25/20
--- OUTSIDE RECORDS SUMMARY | 2024-09-29 23:33 | XMS_ITS | Encounter Summary ---
Author Organization [facility] Address [address] [place] [address] Phone Care Team Providers Care Fixture Fabricator Repairer Name Role Phone Daniel Espinoza MD Primary Care Provider + Sarai Magaña MD Unavailable [phone] Panfilo Kerns MD Primary Care Provider [phone] Encounter Details Date Type Department Care Team (Late st Contact Info) Description 12/01/2017 Orders Only [facility] ProviderCatrachita MD [address] [place] [id number] Social History Tobacco Use Types Packs/Day Years Used Date Smoking Tobacco: Never Smokeless Tobacco: Never Alcohol Use Standard Drinks/Week Comments No 0 (1 standard drink = 0.6 oz pur e alcohol) Comments Unknown Sex and Gender Information Value Date Recorded Sex Assigned at Not on file Legal Sex Female 2:17 AM DOCTOR OF NURSE ANESTHESIA Gender Identity Not on file Sexual Orientation Not on file documented as of this encounter Plan of Treatment Upcoming Encounters Date Type Department Care Team (Late st Contact Info) Description 10/24/2024 8:30 AM DOCTOR OF NURSE ANESTHESIA Hospital Encounter [facility] [address] [place] [phone] Don Maciel MD [address] [facility] [address], [place] [address] 10/24/2024 8:30 AM DOCTOR OF NURSE ANESTHESIA - 10/24/2024 9:00 AM DOCTOR OF NURSE ANESTHESIA Surgery [facility] [address] [place] [phone] Don Maciel MD [address] [place] [address] COLONOSCOPY Scheduled Procedures Name Priority Associated Diagnoses Date/Ti me COLONOSCOPY Personal history of colonic polyps 10/24/2024 8:30 AM DOCTOR OF NURSE ANESTHESIA documented as of this encounter Procedures Procedure Name Priority Date/Time Associated Diagnosis Comments DISCHARGE LABORATORY CUMULATIVE REPORT 12/01/2017 12:00 AM CDT documented in this encounter Results * DISCHARGE LABORATORY CUMULATIVE REPORT (12/01/2017 12:00 AM CDT) Narrative 12/01/2017 12:00 AM CDT Ordered by an unspecified provider. us Historical Provider LAB BLOOD ORDERABLES Acacia l Result documented in this encounter Visit Diagnoses Not on filedocumented in this encounter Care Teams Fixture Fabricator Repairer Relationship Specialty Start Date End Date Daniel Espinoza MD PCP - General 12/04/16 06/19/20 Panfilo Kerns MD [address] [place] [address] PCP - General Family Medicine 06/20/20 Sarai Magaña MD [address] [place] [address] Consulting Physician Obstetrics and Gynecology 01/25/20 documented as of this encounter
--- OUTSIDE RECORDS SUMMARY | 2024-09-29 23:33 | XMS_ITS | Referral Summary ---
Author Organization [facility] Address [address] [place] [address] Care Team Providers Care Job Service Specialist Name Role Phone Sarai Magaña MD Unavailable [phone] Panfilo Kerns MD Primary Care Provider Encounters Date Type Department Care Team Description 09/29/2024 Nurse Triage [facility] [address] [facility] [address], [place] [address] Panfilo Kerns MD 07/03/2024 1:23 PM CDT - 07/03/2024 11:59 PM CDT Hospital Encounter [facility] [address] [place] [address] Screening mammogram, encounter for Discharge Disposition: Discharge to home or self care from Last 3 Months Allergies Active Allergy Reactions Criticality Noted Date [...] discussion Assessment & Plan (10/20/2023 3:24 PM AERONAUTICAL ENGINEERING TEACHER): Advance Care Planning Advance Care Planning Conversation [...] Mckeon to be her healthcare power of regulatory attorney. She states that she would want CPR/Intubation if there is good chance of recovery otherwise she does not want it. She also reports that even if she is on a ventilator, she does not want to prolong life if there is no hope. I printed [place], living [place], power of regulatory attorney for healthcare and POLST form and [...] 10/19/2022 Assessment & Plan (10/20/2023 3:19 PM AERONAUTICAL ENGINEERING TEACHER): Previously on vitamin-D and calcium, she has no longer taking both the medication due to hypercalcemia. Repeat calcium performed on 02/2023 was normal. Will recheck labs. Assessment & Plan (10/19/2022 2:54 PM AERONAUTICAL ENGINEERING TEACHER): Currently on vitamin-D 3 2000 units daily. She does not take calcium supplement. Recheck vitamin-D and PTH Left foot pain 10/16/2021 Assessment & Plan (10/20/2023 3:21 PM AERONAUTICAL ENGINEERING TEACHER): Since she feels that the soreness is getting worse, will refer her to alcohol rubber Assessment & Plan (10/16/2021 3:13 PM AERONAUTICAL ENGINEERING TEACHER): Likely due to mild arthritis. Recommend that she take Tylenol and monitor History of postmenopausal bleeding 06/23/2019 Assessment & Plan (10/19/2022 2:53 PM AERONAUTICAL ENGINEERING TEACHER): History of hysterectomy and oophorectomy. Continue follow-up with the aerial survey technician Assessment & Plan (10/15/2020 10:03 PM AERONAUTICAL ENGINEERING TEACHER): Status post hysterectomy and oophorectomy. Urinary frequency [...] HPOA. Assessment & Plan (10/20/2023 3:20 PM AERONAUTICAL ENGINEERING TEACHER): Mammogram on 06/17/2023 was negative: Recommend annual mammogram. DEXA scan on 02/2021 shows osteopenia, recheck in 2025. Colon cancer screening: Up-to-date, repeat colonoscopy later this year. Referred to GI Advance Care Planning: Discussed with patient, see below Continue regular dental and eye exam She walks 3 times daily, recommend at least 30 minutes of daily exercise Assessment & Plan (10/19/2022 2:53 PM AERONAUTICAL ENGINEERING TEACHER): Counseling and Referral of Preventative Services: Patient [...] exam Assessment & Plan (10/16/2021 3:11 PM AERONAUTICAL ENGINEERING TEACHER): Counseling and Referral of Preventative Services: Patient [...] worse. Assessment & Plan (10/15/2020 10:00 PM AERONAUTICAL ENGINEERING TEACHER): Counseling and Referral of Preventative Services: Lifestyle [...] teenager. Assessment & Plan (10/15/2020 10:04 PM AERONAUTICAL ENGINEERING TEACHER): Continue cetirizine as needed.She reports being on allergy injection when she was a teenager. Assessment & Plan (01/02/2019 2:29 PM CDT): No change in p.r.n. Management Assessment & Plan (12/01/2017 1:54 PM CDT): P.r.n. Jocelin working well Cholelithiasis 07/12/2012 Overview (12/11/2016): Asymptomatic gallstones Assessment & Plan (01/02/2019 2:28 PM CDT): Observe only, asymptomatic for many years Hypercholesterolemia 07/12/2012 Overview (12/11/2016): Hypercholesterolemia Assessment & Plan (10/20/2023 3:17 PM AERONAUTICAL ENGINEERING TEACHER): Currently on simvastatin 10 mg daily. She has not on any side effect. Continue current treatment. Monitor lipid Assessment & Plan (10/19/2022 2:53 PM AERONAUTICAL ENGINEERING TEACHER): Continue statin. Check lipid Assessment & Plan (10/16/2021 3:13 PM AERONAUTICAL ENGINEERING TEACHER): Check labs, continue Zocor Assessment & Plan (10/15/2020 10:03 PM AERONAUTICAL ENGINEERING TEACHER): Continue Lipitor, check lipid Assessment & Plan (01/02/2019 2:29 PM CDT): Fast lipid profile today Assessment & Plan (12/01/2017 1:51 PM CDT): Checking lipid profile and re-evaluating medication Irritable bowel syndrome 07/12/2012 Overview (12/11/2016): Irritable bowel syndrome Assessment & Plan (10/20/2023 3:17 PM AERONAUTICAL ENGINEERING TEACHER): Currently stable. Takes Tigan p.r.n. Assessment & Plan (10/16/2021 3:12 PM AERONAUTICAL ENGINEERING TEACHER): Stable, she takes Tigan occasionally. Reports that after snf it significantly improved and she took it 2 times last year and is needing a refill. Assessment & Plan (10/15/2020 10:03 PM AERONAUTICAL ENGINEERING TEACHER): Constipation predominant. Currently stable. Assessment & Plan [...] adenoma Assessment & Plan (10/20/2023 3:17 PM AERONAUTICAL ENGINEERING TEACHER): She is up-to-date on colonoscopy but will be due later this year. Referral given to patient Assessment & Plan (10/19/2022 2:53 PM AERONAUTICAL ENGINEERING TEACHER): Follow-up with Dr. Finnegan next year Assessment & Plan (01/02/2019 2:28 PM CDT): Reviewed results, Assessment & Plan (12/01/2017 1:51 PM CDT): Colonoscopy up-to-date Resolved Problems Problem Noted Date Diagnosed Date Resolved Date Personal history of colonic polyps 03/12/2021 10/20/2023 Overview (03/12/2021): Added automatically from request for surgery [id number] Post-menopausal bleeding 01/31/202005/2021 Overview (01/31/2020): Added automatically from request for surgery [id number] Uterine mass 01/31/2020 10/20/2023 Overview (01/31/2020): Added automatically from request for surgery [id number] Uterine leiomyoma 06/23/2019 10/20/2023 Encounter for hepatitis C sc reening test for low risk patient 12/01/2017 06/23/2019 Assessment & Plan (12/01/2017 1:51 PM CDT): Screening per guidelines Polyp, sigmoid colon 024 Immunizations Name Administration Dates Next Due Influenza, Quad, Adjuvantate d, Intramuscular 07/21/2022 Influenza, Quadrivalent, Hig h Dose, Preservative Free, Intrr 05/21/2023,06/05/2021,07/15/2020 Influenza, Split 07/11/2013,07/12/2012 Influenza, Trivalent, IM (MDV) 07/23/2014 Influenza, Unspecified 05/07/2023,2021,06/13/2021,06/06(Deferred: Patient Refused),06/06/2017(Deferred: Patient Refused) Pfizer SARS-CoV-2 Monovalent Vaccination (12+ Yrs) PURPLE 01/21/2022,06/27/2021,11/18/2020,10/28 Pneumococcal Conjugate PCV 13 11/06/2015 Pneumococcal Polysaccharide PPV23 07/12/2012 Tdap 10/15/2023 Social History Tobacco Use Types Packs/Day Years [...] on file Legal Sex Female 2:17 AM AERONAUTICAL ENGINEERING TEACHER Gender Identity Not on file Sexual Orientation Not on file Occupation Industry Job Start Date Job End Date Worked in [employer], retired Not on file Not on file Not on file Last Filed Vital Signs Vital Sign Reading Time Taken Comments Blood Pressure 136/72 11/09/2023 1:14 PM AERONAUTICAL ENGINEERING TEACHER Pulse 77 11/09/2023 1:14 PM AERONAUTICAL ENGINEERING TEACHER Temperature 36.3 ??C (97.4 ??F) 06/02/2021 10:52 AM C DT Respiratory Rate 16 10/20/2023 1:13 PM AERONAUTICAL ENGINEERING TEACHER Oxygen Saturation 99% 11/09/2023 1:14 PM AERONAUTICAL ENGINEERING TEACHER Inhaled Oxygen Concentration - - Weight 58.1 kg (128 lb) 11/09/2023 1:14 PM AERONAUTICAL ENGINEERING TEACHER Height 162.6 cm (5' 4 ) 11/09/2023 1:14 PM AERONAUTICAL ENGINEERING TEACHER Body Mass Index 21.97 11/09/2023 1:14 PM AERONAUTICAL ENGINEERING TEACHER Plan of Treatment Upcoming Encounters Date Type Department Care Team (Late st Contact Info) Description 10/24/2024 8:30 AM AERONAUTICAL ENGINEERING TEACHER Hospital Encounter [facility] [address] [place] [phone] Don Maciel MD [address] [address] 10/24/2024 8:30 AM AERONAUTICAL ENGINEERING TEACHER - 10/24/2024 9:00 AM AERONAUTICAL ENGINEERING TEACHER Surgery [facility] [address] [place] [phone] Don Maciel MD [address] [address] COLONOSCOPY Scheduled Procedures Name Priority Associated Diagnoses Date/Ti me COLONOSCOPY Personal history of colonic polyps 10/24/2024 8:30 AM AERONAUTICAL ENGINEERING TEACHER Procedures Procedure Name Priority Date/Time Associated Diagnosis [...] 10:46 AM CDT ENDOSCOPY LAB Patient Name: Paradise Mckeon Procedure Date: 06/02/2021 10:46 AM Admit Type: Outpatient Room: [facility] 1 Date of : 1945 Instrument Name: ANGELO Gender: Female Note Status: Finalized Procedure: Colonoscopy [...] Modality Body N/A Digital Radiogra phy 02/13/2021 2:1 7 PM CDT Impressions 02/13/2021 2:17 PM CDT [...] HISTORY: ??Postmenopausal. DXA BMD was done at [facility] on a Holo[employer] Discovery CI. Precision testing at this site [...] HISTORY: Postmenopausal. DXA BMD was done at [facility] on a Hologic Discovery CI. Precision testing at this site [...] Hep C Ab Non-Reactiv e Non-Reactiv e [facility] Blood specimen (specimen) 12/01/2017 2:00 PM CDT 12/01/2017 6:44 PM CDT Narrative [facility] - 12/01/2017 8:01 PM CDT us Daniel Espinoza MD LAB MICROBIOLOGY - GENER AL ORDERABLES Final Result [facility] [address] Department [place] [address] from Last 3 Months or Most Recently Relevant to Health Maintenance Insurance [facility] [facility] [employer] [place] [address] MEDICARE SOLUTIONS Advance Directives For more information, please contact: [phone] * Full Code (Latest Code Status on File) Date Activated Date Inactivated Comments 06/02/2021 10:28 AM 06/02/2021 4:37 PM * Full Code Date Activated Date Inactivated Comments 07/12/2019 1:30 PM 07/12/2019 7:01 PM Care Teams Job Service Specialist Relationship Specialty Start Date End Date Panfilo Kerns MD [address] [place] [address] PCP - General Family Medicine 06/20/20 Sarai aMgaña MD [address] [place] [address] Consulting Physician Obstetrics and Gynecology 01/25/20
[2024-09-29] MEDS: SODIUM CHLORIDE 0.9% IV 1,000 ML 999 ML IV CONT ×2 (23:52)
[2024-09-29] MEDS: FAMOTIDINE 20 MG/2 ML VIAL IV PUSH (23:52)
[2024-09-29] MEDS: ONDANSETRON INJ 4 MG/2 ML VIAL IV PUSH (23:53)
[2024-09-30] VITALS (14 sets, daily range): BP systolic 119–157; BP diastolic 62–76; PULSE 68–77; RESP 14–22; TEMP 36.4–36.6; O2SAT 92–100
[2024-09-30 00:10] LABS: Magnesium 2.1 mg/dL (1.6-2.3)
--- NOTE | 2024-09-30 00:35 | ED_ITS ---
HPI - Nausea/Vomiting/Diarrhea General Chief complaint: Nausea/Vomiting/Diarrhea Stated complaint: n/v/d since 0300 Time Seen by Provider: 09/29/24 22:55 Source: patient Mode of arrival: ambulatory Limitations: no limitations History of Present Illness HPI Narrative: Patient is a 79-year-old presents the ED with report of nausea, vomiting, diarrhea. Patient reports she suddenly developed symptoms around 3:00 a.m.. States she has had multiple episodes of vomiting and diarrhea. Has been unable to keep down any food or drink. Feels very weak and dehydrated. Denies suspicious food. Denies family members with similar symptoms. Denies rectal bleeding or melena. Denies recent antibiotics or travel. Reports abdominal soreness. Denies fevers, cough or cold symptoms, urinary complaints. Related Data Allergies Allergy/AdvReac Type Severity Reaction Status Date / Time fentanyl Allergy Severe Dyspnea / Verified 09/29/24 19:02 SOB prochlorperazine Allergy Severe Swelling Verified 09/29/24 19:02 of Lip/Tongue/Throat Penicillins Allergy Intermediate Hives Verified 09/29/24 19:02 codeine Allergy Mild Nausea and Verified 09/29/24 19:02 Vomiting Sulfa (Sulfonamide Allergy Mild Rash Verified 09/29/24 19:02 Antibiotics) erythromycin base Allergy Unknown Unknown Verified 09/29/24 19:02 Review of Systems 2 Review of Systems: All systems reviewed & are unremarkable except as noted in HPI. All systems reviewed & are unremarkable except as noted in HPI and below Exam 2 Narrative: GENERAL: Mildly ill-appearing, thin/frail, non-toxic, in no acute distress. HEAD: Normocephalic, atraumatic. ENT: MMs dry RESPIRATORY: Airway patent, respirations nonlabored. Clear to auscultation bilaterally, no rales, rhonchi, wheezing. CARDIOVASCULAR: Regular rate and rhythm without murmurs, rubs, or gallops. ABDOMINAL: Soft, mild tenderness to palpation throughout upper abdomen, left- sided abdomen, nondistended. Normoactive BS. MUSCULOSKELETAL: Moves all extremities. No gross deformities. SKIN: Warm, dry, normal color. NEURO: A&O X3. Speech clear. No ataxic movements. PSYCHIATRIC: Appropriate mood and affect. Normal interaction. Course Vital Signs Vital signs: Vital Signs Temperature 98.5 F 09/29/24 19:11 Pulse Rate 98 09/29/24 19:11 Respiratory Rate 20 09/29/24 19:11 Blood Pressure 150/59 H 09/29/24 19:11 Pulse Oximetry 98 09/29/24 19:11 Oxygen Delivery Room Air 09/29/24 19:11 Temperature 97.9 F 09/30/24 05:30 Pulse Rate 76 09/30/24 05:30 Respiratory Rate 18 09/30/24 05:30 Blood Pressure 119/69 09/30/24 05:30 Pulse Oximetry 96 09/30/24 05:30 Oxygen Delivery Room Air 09/29/24 19:11 MDM - Nausea/Vomiting/Diarrhea MDM Narrative Medical decision making narrative: Patient presented to ED with nausea, vomiting, diarrhea, sudden onset today. Vital signs are stable upon arrival. Patient mildly ill appearing. Cbc without leukocytosis. Stable H& H. Bicarb 21 on CMP. Anion gap of 12. Fluids ongoing. Stable electrolytes. Normal LFTs and lipase. UA ordered. Viral swabs are negative. CT scan of abdomen/pelvis was obtained and without acute findings. Does show possible gallbladder polyp. No right upper quadrant tenderness on exam. Liver enzymes are normal. Low suspicion for acute gallbladder etiology causing symptoms. Discussed this with patient and recommended outpatient follow-up. Stool studies were ordered, however patient was unable to provide sample. Patient given 2 L of fluid in the ED in addition to Benadryl, Reglan, Zofran, Pepcid. On re-evaluation, she is feeling improved. Resting comfortably. States nausea is significantly better. Will attempt p.o. challenge. Discussed lab and imaging findings with patient. Discussed high likelihood of gastroenteritis. Feel she is otherwise safe for discharge home. Will prescribe Zofran for home use. Advised to continue pushing fluids. Recommended close follow-up with PCP for further evaluation. Discussed strict return precautions. Patient in agreement with plan. Discharged in stable condition. Medical Records Attestation: I reviewed the patient's medical records. Lab Data Attestation: I reviewed the patient's lab results. 09/29/24 22:14 09/29/24 22:14 Labs: Lab Results 09/29/24 09/30/24 Range/Units 22:14 01:00 WBC 4.8 (4.5-10.0) K/mm3 RBC 4.43 (4.2-5.4) M/mm3 Hgb 12.8 (12.0-15.0) g/dL Hct 39.6 (37.0-47.0) % MCV 89.4 (80-100) fl MCH 28.9 (26-34) pg MCHC 32.3 (32-36) g/dl RDW 13.1 (11.5-14.5) % Plt Count 209 (150-375) k/mm3 MPV 10.4 (7.4-10.4) fl Immature Gran % (Auto) 0.2 (0-0.5) % Neut % (Auto) 89.7 H (45.5-73.1) % Lymph % (Auto) 4.1 L (18.3-44.2) % Carlton % (Auto) 5.4 (2.6-8.5) % Eos % (Auto) 0.2 (0-4.4) % Baso % (Auto) 0.4 (0.2-1.2) % Lymph # (Auto) 0.20 L (0.9-3.2) K/mm3 Carlton # (Auto) 0.3 (0.1-0.6) K/mm3 Eos # (Auto) 0.0 (0-0.3) K/mm3 Baso # (Auto) 0.0 (0.0-0.1) K/mm3 Abs Immat Gran (auto) 0.01 (0.00-0.031) K/mm3 Absolute Neuts (auto) 4.3 (1.3-6.7) K/mm3 Absolute Nucleated RBC 0.000 (0.0-0.012) K/mm3 Nucleated RBC % 0.0 (0.0-0.2) % Sodium 140 (137-145) mmol/L Potassium 4.1 (3.4-5.0) mmol/L Chloride 107 (98-107) mmol/L Carbon Dioxide 21 L (22-30) mmol/L Anion Gap 12 (4-12) mmol/L BUN 27 H (7-17) mg/dL Creatinine 0.81 (0.7-1.0) mg/dL Estim Creat Clear Calc 42 ml/min Estimated GFR > 60 (59 - ) Glucose 109 (65-110) mg/dL Calcium 10.1 (8.4-10.2) mg/dL Magnesium 2.1 (1.6-2.3) mg/dL Total Bilirubin 0.6 (0.2-1.3) mg/dL AST 35 (14-36) U/L ALT 22 (6-35) U/L Alkaline Phosphatase 67 (38-126) U/L Total Protein 7.0 (6.3-8.2) g/dL Albumin 4.3 (3.5-5.1) g/dL Lipase 88 (23-300) U/L Influenza A (RT-PCR) Negative (Negative) Influenza B (RT-PCR) Negative (Negative) RSV (RT-PCR) Negative (Negative) SARS-CoV-2 RNA (RT-PCR) Negative (Negative) Imaging Data Attestation: I personally reviewed and interpreted this imaging study as follows: Radiologist's impression: STAT RAD CT abd/pelvis: Prior 05/01/19. No acute finding. Possible gallbladder polyp, recommend gallbladder ultrasound. Discharge Plan Discharge Clinical Impression: Gastroenteritis, Nausea and vomiting, Diarrhea, Gallbladder polyp Patient Disposition: Home, Self-Care Condition: Stable Instructions: Antibiotic Form, Clear Liquid Diet (ED), Gastroenteritis (ED), Acute Nausea and Vomiting (ED) Additional Instructions: Utilize zofran as needed for further nausea. Increase fluid intake. Recommend electrolyte rich fluids, gatorade, pedialyte, body armour. Recommend clear liquids or bland diet until symptoms improve, such as bananas, rice, applesauce, toast, or crackers. Follow up with your primary care doctor for further evaluation. Return to the ED if you experience worsening or severe symptoms, unable to keep down food or drink, severe pain, fevers, rectal bleeding, vomiting blood, or any other symptoms of concern. Your CT showed evidence of a gallbladder polyp. Follow-up with your primary care doctor for this and further outpatient imaging. Patient Language: Swedish Prescriptions: New ondansetron 4 mg tablet,disintegrating 4 mg PO Q8H PRN (Reason: nausea and vomiting) Qty: 15 0RF Follow-up/Referrals: PHYSICIAN NOT ON STAFF,NONSTAFF [Primary Care Provider] -
[2024-09-30] MEDS: diphenhydrAMINE HCl INJ 50 MG/ML VIAL 25 MG IV PUSH (01:18)
[2024-09-30] MEDS: METOCLOPRAMIDE HCL INJ 10 MG/2 ML VIAL IV PUSH (01:18)
[2024-09-30 01:44] LABS: Influenza A QL RT-PCR Negative (Negative); Influenza B QL RT-PCR Negative (Negative); RSV RNA, RT-PCR Negative (Negative); SARS-CoV-2 RNA PCR Negative (Negative)
--- NOTE | 2024-09-30 02:43 | PC.NURSE ---
ok to hold maintenance fluids while attempting to po challenge
== END 2024-09-30 05:34 | disposition home or self-care (01) ==
PROVIDERS: Emergency Medicine; Emergency Provider Physician Assistant
DX: K52.9 Noninfective gastroenteritis and colitis, unspecified (principal); K82.4 Cholesterolosis of gallbladder; Z20.822 Contact with and (suspected) exposure to COVID-19
CPT/HCPCS: 36415; 74177; 80053; 83690; 83735; 85025; 87637; 96361; 96374; 96375; 99284; J1200; J2405; J2765; J7030; Q9967